=== PATIENT | female | born 1950 ===

== ENCOUNTER 2021-02-11 05:45 | Day surgery (SDC) | payer OTHER ==
[~2021-02-11 05:45] MED LIST: FOLIC ACID0.8 M1 PO; METHOTREXATE2.5 MG PO; MULTI VITAMIN1 EACH PO; PRESERVISION L1 EACH PO; ZETIA10 MG PO
[2021-02-11] MEDS ORDERED: PERCOCET 5-3251 EACH PO (08:50)
[2021-02-11] MEDS ORDERED: RECTICARE30 GM TOP (08:51)
== END 2021-02-11 13:45 | disposition home or self-care (01) ==
LOC: CIR.AMB 05:45
PROVIDERS: ATTEND Surgery
DX: K64.8 Other hemorrhoids (principal); Z20.822 Contact with and (suspected) exposure to COVID-19